=== PATIENT | female | born 1990 | race Caucasian/White ===

== ENCOUNTER 2016-10-19 23:30 | Emergency (ER) | payer BC ==
[2016-10-20] MEDS ORDERED: NS 0.9% 1000 ML* 2,000 ML IV ONE (03:41)
[2016-10-20] MEDS ORDERED: Ondansetron INJ* 2 MG/ML VIAL IV ONE (03:42)
[2016-10-20 05:02] LABS: Hematocrit 39 % (35-47); Hemoglobin 13.4 g/dl (12.0-16.0); Mean Corpuscular HGB Conc 34 g/dl (31-36); Mean Corpuscular Hemoglobin 30 pg (27-31); Mean Corpuscular Volume 87 fL (80-97); Mean Platelet Volume 8 um3 (7.4-10.4); Red Blood Count 4.51 10^6/ul (4.0-5.4); Red Cell Distribution Width 13 % (10.5-15); White Blood Count 11.2 10^3/ul (3.5-10.8)
[2016-10-20 05:06] LABS: Budding Yeast Present (Absent); Urine Bacteria Absent (Absent); Urine Bilirubin Negative (Negative); Urine Glucose Negative (Negative); Urine Nitrite Negative (Negative)
[2016-10-20 05:14] LABS: Albumin 4.5 g/dL (3.2-5.2); BUN/Creatinine Ratio 28.1 (8-20); Calcium 10.2 mg/dL (8.6-10.3); EGFR African American 91.8 (>60); EGFR Non-African American 71.4 (>60); Globulin 3.9 g/dL (2-4); Total Bilirubin 0.9 mg/dL (0.2-1.0); Total Protein 8.4 g/dL (6.4-8.9)
[2016-10-20] MEDS ORDERED: Potassium Chlor TAB* 20 MEQ TAB.ER PO ONE (05:43)
--- NOTE | 2016-10-20 06:13 | ED ---
Cari Pennington Matthew, scribed for Collins Acosta on 10/20/16 at 0447 . GI/ HPI - HPI Summary HPI Summary: A 26 y/o female presents to the ED c/o of vomiting for the last 2 days. She states that she vomited once every 10-15 minutes throughout the day today. Associated symptoms include nausea. The patient denies chest pain, SOB, abdominal pain, and diarrhea. The patient has flatulence. - History of Current Complaint Chief Complaint: EDNauseaVomitDiarrh Time Seen by Provider: 10/20/16 03:27 Stated Complaint: FLU LIKE SYMPTOMS Hx Obtained From: Patient Onset/Duration: Started Days Ago, Atraumatic, Still Present Timing: Constant Severity: Moderate Current Severity: Moderate Pain Intensity: 0 Associated Signs and Symptoms: Positive: Nausea, Vomiting. Negative: Diarrhea, Abdominal Pain, Chest Pain - Additional Pertinent History Primary Care Physician: RIGOBERTO - Allergy/Home Medications Allergies/Adverse Reactions: Allergies Allergy/AdvReac Type Severity Reaction Status Date / Time Amoxicillin Allergy Unknown Verified 06/13/16 08:17 Reaction Details Penicillins Allergy Hives Verified 06/13/16 08:17 PMH/Surg Hx/FS Hx/Imm Hx Endocrine/Hematology History: Denies: Hx Anticoagulant Therapy, Hx Anemia - Immunization History Date of Tetanus Vaccine: Unk Date of Influenza Vaccine: None Infectious Disease History: No Infectious Disease History: Denies: Traveled Outside the [place] in Last 30 Days - Family History Known Family History: Positive: Hypertension - Social History Alcohol Use: None Hx Substance Use: No Substance Use Type: Reports: None Hx Tobacco Use: Yes Smoking Status (MU): Former Smoker Type: Cigarettes Amount Used/How Often: SOCIAL Have You Smoked in the Last Year: No Review of Systems Constitutional: Negative Eyes: Negative ENT: Negative Cardiovascular: Negative Negative: Chest Pain Respiratory: Negative Negative: Shortness Of Breath Positive: Vomiting, Nausea. Negative: Abdominal Pain, Diarrhea Genitourinary: Negative Musculoskeletal: Negative Skin: Negative Neurological: Negative Psychological: Normal All Other Systems Reviewed And Are Negative: Yes Physical Exam Triage Information Reviewed: Yes Vital Signs On Initial Exam: Initial Vitals Temp Pulse Resp BP Pulse Ox 98.4 F 110 18 124/79 96 10/20/16 00:23 10/20/16 00:23 10/20/16 00:23 10/20/16 00:23 10/20/16 00:23 Vital Signs Reviewed: Yes Appearance: Positive: Well-Appearing, No Pain Distress Skin: Positive: Warm, Skin Color Reflects Adequate Perfusion, Dry Head/Face: Positive: Normal Head/Face Inspection Eyes: Positive: EOMI, KUSUM ENT: Positive: Normal ENT inspection Neck: Positive: Supple, Nontender Respiratory/Lung Sounds: Positive: Clear to Auscultation, Breath Sounds Present Cardiovascular: Positive: RRR, Pulses are Symmetrical in both Upper and Lower Extremities Abdomen Description: Positive: Nontender, Soft Bowel Sounds: Positive: Present Musculoskeletal: Positive: Normal, Strength/ROM Intact Neurological: Positive: Normal, Sensory/Motor Intact, Alert, Oriented to Person Place, Time Psychiatric: Positive: Affect/Mood Appropriate Diagnostics - Vital Signs Vital Signs Temp Pulse Resp BP Pulse Ox 10/20/16 03:11 97.6 F 83 125/83 97 10/20/16 00:23 98.4 F 110 18 124/79 96 - Laboratory Lab Results: Lab Results 10/20/16 Range/Units 00:50 Influenza A (Rapid) Negative (Negative) Influenza B (Rapid) Negative (Negative) Result Diagrams: 10/20/16 04:50 10/20/16 04:50 Lab Statement: Any lab studies that have been ordered have been reviewed, and results considered in the medical decision making process. GIGU Course/Dx - Course Assessment/Plan: A 26 y/o female presents to the ED c/o of vomiting for the last 2 days. She states that she vomited once every 10-15 minutes throughout the day today. Associated symptoms include nausea. The patient denies chest pain , SOB, abdominal pain, and diarrhea. The patient has flatulence. The patient does not have an acute abdomen and CT of abdomen is not indicated at present. Labs were reviewed. The patient was given zofran and IV fluids in the ED. She will be discharged home and follow-up with her PCP. - Diagnoses Provider Diagnoses: Dehydration, Vomiting Discharge - Discharge Plan Condition: Stable Disposition: HOME Prescriptions: Ondansetron ODT TAB* [Zofran 4 MG Odt TAB*] 4 mg PO Q8H PRN #20 tab.odt PRN Reason: Vomiting Patient Education Materials: Ondansetron (By mouth), Dehydration (ED), Acute Nausea and Vomiting (ED) Referrals: [facility] [Outside] Additional Instructions: Please follow-up with your primary care physician in 3 days. The documentation as recorded by the Cari shultz Matthew accurately reflects the service I personally performed and the decisions made by , Collins Acosta.
[2016-10-20 06:46] VITALS: BP 106/68
== END 2016-10-20 06:46 | disposition home or self-care (01) ==
LOC: ED 23:30
DX: E86.0 Dehydration (principal); R11.2 Nausea with vomiting, unspecified; Z87.891 Personal history of nicotine dependence
CPT/HCPCS: 36415; 80053; 81003; 81015; 83690; 84702; 85025; 87502; 96374; 99283; A9270-GY; J2405

== ENCOUNTER 2017-10-29 16:19 | Emergency (ER) | payer BC ==
[2017-10-29 17:28] VITALS: BP 116/74
--- NOTE | 2017-10-29 18:16 | UC ---
UC General HPI - HPI Summary HPI Summary: Pt c/o sudden onset of nausea vomiting and loose stools that began today. Pt states she may be . - History of Current Complaint Chief Complaint: UCGeneralIllness Stated Complaint: NAUSEA, VOMITING Time Seen by Provider: 10/29/17 17:56 Hx Obtained From: Patient Hx Last Menstrual Period: 08/2017 Onset/Duration: Sudden Onset, Resolved Onset Severity: Mild Current Severity: Mild Pain Intensity: 0 Associated Signs & Symptoms: Positive: Diarrhea, Nausea, Vomiting Related Hx: Recent Hospitalization - inpatient rehab for heroin addiction - Allergy/Home Medications Allergies/Adverse Reactions: Allergies Allergy/AdvReac Type Severity Reaction Status Date / Time amoxicillin Allergy Intermediate Hives Verified 10/29/17 17:30 Penicillins Allergy Intermediate Hives Verified 10/29/17 17:30 PMH/Surg Hx/FS Hx/Imm Hx Previously Healthy: Yes Other History Of: Negative For: Anticoagulant Therapy - Surgical History Surgical History: Yes Surgery Procedure, Year, and Place: 2015 - Family History Known Family History: Positive: Hypertension - Social History Occupation: Employed Full-time Lives: With Family Alcohol Use: None Substance Use Type: Heroin Substance Use Comment - Amount & Last Used: out of rehab 10/05/17 Smoking Status (MU): Former Smoker Type: Cigarettes Amount Used/How Often: SOCIAL Have You Smoked in the Last Year: No - Immunization History Most Recent Influenza Vaccination: 05/2016 Most Recent Tetanus Shot: 03/20/2016 Most Recent Pneumonia Vaccination: does not recieve Review of Systems Constitutional: Negative Skin: Negative Eyes: Negative ENT: Negative Respiratory: Negative Cardiovascular: Negative Gastrointestinal: Vomiting, Diarrhea, Nausea Genitourinary: Negative Motor: Negative Neurovascular: Negative Musculoskeletal: Negative Neurological: Negative Psychological: Negative Is Patient Immunocompromised?: No All Other Systems Reviewed And Are Negative: Yes Physical Exam Triage Information Reviewed: Yes Appearance: Well-Appearing Vital Signs: Initial Vital Signs Temp 97.8 F 10/29/17 17:21 Pulse 85 10/29/17 17:21 Resp 17 10/29/17 17:21 BP 116/74 10/29/17 17:21 Pulse Ox 99 10/29/17 17:21 Vital Signs Reviewed: Yes Eye Exam: Normal ENT Exam: Normal Dental Exam: Normal Neck exam: Normal Respiratory Exam: Normal Cardiovascular Exam: Normal Abdominal Exam: Normal Bowel Sounds: Positive: Present Musculoskeletal Exam: Normal Neurological Exam: Normal Psychological Exam: Normal Skin Exam: Normal Diagnostics - Laboratory Diagnostic Studies Completed/Ordered: urine : positive for Course/Dx - Differential Dx - Multi-Symptom Provider Diagnoses: . nausea and vomiting associated with Discharge - Sign-Out/Discharge Documenting (check all that apply): Discharge - Discharge Plan Condition: Stable Disposition: HOME Prescriptions: Metoclopramide TAB* [Reglan TAB*] 10 mg PO Q12H PRN #20 tab PRN Reason: Nausea Patient Education Materials: Nausea and Vomiting in (ED), ( ED) Forms: *Work Release Referrals: No Primary Care Phys,NOPCP [Primary Care Provider] - Additional Instructions: Please make an appointment with an OB provider as soon as possible. - Billing Disposition and Condition Condition: STABLE Disposition: HOME
== END 2017-10-29 18:33 | disposition home or self-care (01) ==
LOC: UCCORT 16:19
DX: O26.899 Other specified pregnancy related conditions, unspecified trimester (principal); Z3A.00 Weeks of gestation of pregnancy not specified; R11.2 Nausea with vomiting, unspecified; Z88.0 Allergy status to penicillin; Z87.891 Personal history of nicotine dependence
CPT/HCPCS: 84702; 99212; G0463

== ENCOUNTER 2017-12-01 09:21 | Emergency (ER) | payer BC ==
[2017-12-01 09:44] VITALS: BP 118/83
--- NOTE | 2017-12-01 10:16 | ED ---
GI/ HPI - HPI Summary HPI Summary: 27 yr old female with the complaint of nausea and diarrhea with muscle aches. The patient has a child with the same symptoms. She states she missed work today and needs a note. she has no urinary symptoms. She has some minor upper abdominal cramping at times relieved by diarrhea episode. She had an ETP two weeks ago. No issues at this point. no pelvic pain - History of Current Complaint Chief Complaint: UCGI Time Seen by Provider: 12/01/17 09:56 Stated Complaint: STOMACH COMPLAINT Hx Last Menstrual Period: 2 weeks Pain Intensity: 3 - Additional Pertinent History Primary Care Physician: [id number] - Allergy/Home Medications Allergies/Adverse Reactions: Allergies Allergy/AdvReac Type Severity Reaction Status Date / Time amoxicillin Allergy Intermediate Hives Verified 12/01/17 09:39 Penicillins Allergy Intermediate Hives Verified 12/01/17 09:39 PMH/Surg Hx/FS Hx/Imm Hx Endocrine/Hematology History: Denies: Hx Anticoagulant Therapy, Hx Anemia - Surgical History Surgery Procedure, Year, and Place: 2016 - Immunization History Date of Tetanus Vaccine: Unk Date of Influenza Vaccine: None Infectious Disease History: No Infectious Disease History: Denies: Traveled Outside the [place] in Last 30 Days - Family History Known Family History: Positive: Hypertension - Social History Lives: With Family Alcohol Use: None Hx Substance Use: No Substance Use Type: Reports: None Substance Use Comment - Amount & Last Used: out of rehab 10/05/17 Hx Tobacco Use: Yes Smoking Status (MU): Former Smoker Type: Cigarettes Amount Used/How Often: SOCIAL Have You Smoked in the Last Year: No Review of Systems Constitutional: Negative Positive: Diarrhea, Nausea All Other Systems Reviewed And Are Negative: Yes Physical Exam Triage Information Reviewed: Yes Vital Signs On Initial Exam: Initial Vitals Temp Pulse Resp BP Pulse Ox 97.8 F 87 16 118/83 97 12/01/17 09:40 12/01/17 09:40 12/01/17 09:40 12/01/17 09:40 12/01/17 09:40 Vital Signs Reviewed: Yes Appearance: Positive: Well-Appearing, No Pain Distress Skin: Positive: Warm, Skin Color Reflects Adequate Perfusion Head/Face: Positive: Normal Head/Face Inspection Eyes: Positive: EOMI ENT: Positive: Normal ENT inspection Neck: Positive: Nontender Respiratory/Lung Sounds: Positive: Clear to Auscultation, Breath Sounds Present Cardiovascular: Positive: RRR. Negative: Murmur Abdomen Description: Positive: Nontender. Negative: Distended Musculoskeletal: Positive: Strength/ROM Intact Neurological: Positive: Sensory/Motor Intact, Alert, Oriented to Person Place, Time, CN Intact II-III Psychiatric: Positive: Normal - [place] Coma Scale Best Eye Response: 4 - Spontaneous Best Motor Response: 6 - Obeys Commands Best Verbal Response: 5 - Oriented Coma Scale Total: 15 Diagnostics - Vital Signs Vital Signs Temp Pulse Resp BP Pulse Ox 12/01/17 09:40 97.8 F 87 16 118/83 97 - Laboratory Lab Statement: Any lab studies that have been ordered have been reviewed, and results considered in the medical decision making process. GIGU Course/Dx - Course Course Of Treatment: 27 yr old with gastroenteritis. Plan DC home on zofran and note for work given. - Diagnoses Provider Diagnoses: Gastroenteritis Discharge - Sign-Out/Discharge Documenting (check all that apply): Discharge/Admit/Transfer - Discharge Plan Condition: Good Disposition: HOME Prescriptions: Ondansetron TAB* [Zofran 4 MG Tab*] 4 mg PO Q6H PRN #10 tab PRN Reason: Nausea Patient Education Materials: Gastroenteritis (ED) Forms: *Work Release Referrals: [facility]FERR[facility] [Outside] No Primary Care Phys,NOPCP [Primary Care Provider] - - Billing Disposition and Condition Condition: GOOD Disposition: HOME
== END 2017-12-01 10:14 | disposition home or self-care (01) ==
LOC: UCCORT 09:21
DX: K52.9 Noninfective gastroenteritis and colitis, unspecified (principal); Z87.891 Personal history of nicotine dependence; Z88.3 Allergy status to other anti-infective agents; Z88.0 Allergy status to penicillin
CPT/HCPCS: 99212; G0463

== ENCOUNTER 2018-09-02 07:36 | Emergency (ER) | payer BC, OTHER ==
--- OUTSIDE RECORDS SUMMARY | 2018-09-02 07:41 | XMS REPORT | Continuity of Care Document ---
:1990 External Reference #:[id number] Author Name Debbie Figueroa Care Team Providers Name Role Phone Shaan Huston MD Care Team Information Meteorology Instructor Unavailable Payers Type Date Identification Numbers Payment Provider Subscriber Onset: 2018 Policy Number: [id number] [employer]ha Liu PayID: [id number] [address] [place] [address] Advance Directives Description No Information Available Problems Description No Information Family History Date Family Member(s) Problem(s) Comments Father Alive Father Wears Glasses Mother Alive Mother Wears Glasses First Sister Alive First Sister Wears CLS First Sister Wears Glasses Paternal Grandfather due to [place] () Paternal Grandmother Alive Maternal Grandfather due to Unknown Causes () Maternal Grandmother Alive Social History Type Date Description Comments Sex Unknown Marital Status 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 Quit 3 years ago Recreational Drug Use Denies Drug Use Smoking Status Reviewed: 06/19/18 Patient is a former smoked 3 cigarettes a smoker day x 1 to 2 years. Quit 3 years ago Exercise Type/Frequency Exercises regularly Allergies, Adverse Reactions, Alerts Date Description Reaction Status Severity Comments 06/18/2018 Amoxicillin Active 06/18/2018 Penicillin Active Medications Medication Date Status Form Strength Qnty SIG Indications Ordering Provider Fluorometholone 06/19/ Active Suspension 0.1% 5ml please Robel, 2017 apply 1 MD Shaan drop to both eyes 2 times daily for 5 days Maxitrol / Active Suspension 3.5-57821- 1 drop Robel, 0000 0.1 left eye MD Shaan tid x 5 days Artificial Tears / Active Solution 1.4% instill Unknown 0000 1 drop in left eye as needed No Active Unknown Medications 2018 - 2017 Immunizations Description No Information Available Vital Signs Description No Information Available Results Description No Information Available Procedures Date Code Description Status 06/19/2018 59835 Remove Foreign Body Conjunctiva Embedded Completed 06/18/2018 66429 Eye Exam New Patient Comprehensive Completed Encounters Description No Information Available Plan of Treatment 06/19/2018 - Shaan Huston, [id number] Injury of conjunctiva and corneal abrasion without foreign body, left eye, initial encounterComments:- removed a fiber-like material left upper eyelid- there continues to be acute conjunctivitis s/p foreign body exposure- please stop neomycin/polymyxin/ dexamethasone please continue - artificial tears 1 drop left eye 4 times daily for 4 days- cool compresses for swelling- erythromycin ointment thin ribbon 2 times daily in the left eye for 3 days- fluorometholone 1 drop left eye 2 times daily for 5 days- safety glasses when working with environmental hazardsplease call with ? or concernsFollow up:please call with ? or concerns
--- OUTSIDE RECORDS SUMMARY | 2018-09-02 07:41 | XMS REPORT | Continuity of Care Document ---
:1990 External Reference #:[id number] Author Name Debbie Figueroa Care Team Providers Name Role Phone Shaan Huston MD Care Team Information Sr. 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 consumes alcohol socially Tobacco [...] for 5 days Maxitrol / Active Suspension 3.5-79719- 1 drop Robel, 0000 0.1 left eye MD Shaan tid x 5 days Artificial Tears / Active Solution 1.4% instill Unknown 0000 1 drop in left eye as needed No Active Unknown Medications 2018 - 2017 Immunizations Description No Information Available Vital Signs Description No Information Available Results Description No Information Available Procedures Date Code Description Status 06/19/2018 76900 Remove Foreign Body Conjunctiva Embedded Completed 06/18/2018 97767 Eye Exam New Patient Comprehensive Completed Encounters [...]
[2018-09-02 07:45] VITALS: BP 138/83
--- NOTE | 2018-09-02 08:02 | UC ---
Abdominal Pain Female HPI - HPI Summary HPI Summary: Patient presents to urgent care with acute nausea and vomiting. Patient states he was well when she went to bed. Patient states she woke up around 3 AM with vomiting. Patient states she's vomited 55 times since then. No bilious no blood. Patient states she also has had some diarrhea. No blood. Patient states she gets a little bit of abdominal cramping and mealy following bowel movement but it does not last. Patient denies fevers or chills. 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 Patient denies headache, congestion. Patient denies eating any questionable food. Nobody else at home sick. Patient states she is not . Patient's menses started this week. Patient did say she noticed that her urine seems a little bit dark and cloudy. No odor. No dysuria or frequency. Patient's medications reviewed this visit. - History of Current Complaint Chief Complaint: UCGeneralIllness Stated Complaint: STOMACH ACHE Time Seen by Provider: 09/02/18 08:00 Hx Obtained From: Patient Hx Last Menstrual Period: 09/02/18 ?: No Onset/Duration: Sudden Onset Severity Initially: Mild Severity Currently: Mild Pain Intensity: 4 Allergies/Adverse Reactions: Allergies Allergy/AdvReac Type Severity Reaction Status Date / Time amoxicillin Allergy Intermediate Hives Verified 09/02/18 07:45 Penicillins Allergy Intermediate Hives Verified 09/02/18 07:45 Home Medications: Home Medications Ibuprofen 600 mg PO ONCE PRN 09/02/18 [History Confirmed 09/02/18] PMH/Surg Hx/FS Hx/Imm Hx Previously Healthy: Yes Other History Of: Negative For: Anticoagulant Therapy - Surgical History Surgical History: Yes Surgery Procedure, Year, and Place: 2016 - Family History Known Family History: Positive: Hypertension - Social History Alcohol Use: Occasionally Substance Use Type: None Substance Use Comment - Amount & Last Used: out of rehab 10/05/17 Smoking Status (MU): Former Smoker Type: Cigarettes Amount Used/How Often: SOCIAL Have You Smoked in the Last Year: No - Immunization History Most Recent Influenza Vaccination: 05/2016 Most Recent Tetanus Shot: 03/20/2016 Most Recent Pneumonia Vaccination: does not recieve Review of Systems All Other Systems Reviewed And Are Negative: Yes Constitutional: Positive: Fatigue Respiratory: Positive: Negative Gastrointestinal: Positive: Vomiting, Diarrhea, Nausea Genitourinary: Positive: Other - cloudy, dark Motor: Positive: Negative Is Patient Immunocompromised?: No Physical Exam - Summary Physical Exam Summary: Vital Signs Reviewed: Yes A+Ox3, no distress Eyes: Conjunctiva Clear, KUSUM. EOM intact and full ENT: Hearing grossly normal TM x 2 clear, mmoist, uvula midline, no exudate, no erythema Neck: Positive: Supple Respiratory: Positive: No respiratory distress, No accessory muscle use + CTA throughout no w/r Cardiovascular: RRR nl s1, s2 no m/r CBT <2 sec abd soft + BS nd, no guarding, no rebound mild diffuse pain Musculoskeletal Exam: HERNANDEZ x 4 without difficulty Strength Intact, ROM Intact Neurological: Positive: Alert, + sensation throughout Psychological: Positive: Normal Response To Family Skin: Positive: no rash, no ecchymosis Triage Information Reviewed: Yes Vital Signs: Initial Vital Signs Temp 97.5 F 09/02/18 07:41 Pulse 98 09/02/18 07:41 Resp 18 09/02/18 07:41 BP 138/83 09/02/18 07:41 Pulse Ox 100 09/02/18 07:41 Re-Evaluation - Re-Evaluation First Eval Change: Improved - Pt improved following zofran - tolerating ice chips reviewed urine Will Rx macrobd, zofran clears to bland return precautions Abd Pain Female Course/Dx - Course Course Of Treatment: Patient presents to urgent care with acute onset nausea vomiting and diarrhea at 3 AM. Patient states multiple coworkers with similar symptoms. Patient denies any fevers. Patient with mild episodes of abdominal pain and increased right after bowel movements and then resolve. No head congestion symptoms. No chest pain or shortness of breath or cough. Patient states she currently has her menses. Patient does comment that her urine is cloudy and dark - Differential Dx/Diagnosis Provider Diagnosis: Vomiting and diarrhea, UTI (urinary tract infection) Discharge - Sign-Out/Discharge Documenting (check all that apply): Patient Departure All imaging exams completed and their final reports reviewed: No Studies - Discharge Plan Condition: Stable Disposition: HOME Prescriptions: Nitrofurantoin Monohyd/M-Cryst [Macrobid 100 mg Capsule] 100 mg PO BID #14 cap Ondansetron ODT TAB* [Zofran 4 MG Odt TAB*] 4 mg PO Q4H PRN #10 tab.odt PRN Reason: Nausea Patient Education Materials: Urinary Tract Infection in Women (ED), Acute Nausea and Vomiting (ED) Forms: *Gen. Provider Communication, *Work Release Referrals: No Primary Care Phys,NOPCP [Primary Care Provider] - Additional Instructions: - stay well hydrated - drink plenty of non-alcoholic, non caffinated beverages. For the first 6 hours, eat and drink clears (water, [place], soup broth, jello, popsicles, Gatorade). If you tolerate this okay, add bland foods such as dry toast, scrambled eggs, crackers. Wait until you are feeling better for 24 hours before eating spicy food, acidic food, tomato based food, fried food. -These infections are spread by oral secretions. Do not share eating or drinking utensils. Frequent hand washing is important. Clean items that may get your secretions on them such as cell phones, ipads, computer mouse, television remotes. Once you have been on antbiotics for 2 days, change your pillowcase and your toothbrush - Your urine will be further tested - if you require any changes to your treatment, we will contact you - this usually take 2 days - Contact your primary doctor to arrange a follow-up appointment next week. Contact your doctor or return with questions or concerns - Take your antibiotics exactly as prescribed until gone -Okay to take medication as prescribed for nausea - If you develop increased pain, uncontrolled fevers, inability to stay hydrated or any other concerns it is recommended you go to the emergency department for further evaluation and treatment - Call your doctor or return with questions or concerns - Billing Disposition and Condition Condition: STABLE Disposition: Home
[2018-09-02] MEDS ORDERED: Ondansetron ODT TAB* 4 MG PO ONE (08:22)
== END 2018-09-02 08:56 | disposition home or self-care (01) ==
LOC: UCCORT 07:36
DX: R11.2 Nausea with vomiting, unspecified (principal); R19.7 Diarrhea, unspecified; N39.0 Urinary tract infection, site not specified; Z88.0 Allergy status to penicillin; Z87.891 Personal history of nicotine dependence
CPT/HCPCS: 81003; 87086; 99212; A9270-GY; G0463

== ENCOUNTER 2019-03-27 13:36 | Emergency (ER) | payer OTHER ==
[2019-03-27 13:48] VITALS: BP 116/82
--- NOTE | 2019-03-27 14:03 | UC ---
Nausea/Vomiting/Diarrhea HPI - HPI Summary HPI Summary: Pt had grilled chicken at her brother's house yesterday and a few pieces had to be returned to the grill because they were still pink. She had already eaten a few pieces. During the night she started having vomiting (about 4 times since it started until now), and diarrhea X 3. She denies any fever or chills. Last time she threw up and had diarrhea was just about 45 minutes prior to arrival. No other family members are ill. - History of Current Complaint Chief Complaint: UCGI Stated Complaint: NAUSEA, VOMITING, DIARRHEA Time Seen by Provider: 03/27/19 13:57 Hx Obtained From: Patient Hx Last Menstrual Period: 09/02/18 ?: No Onset/Duration: Sudden Onset Timing: Intermittent Episodes Lasting: - Lasts just a few minutes Severity Initially: Mild Severity Currently: Mild Pain Intensity: 0 Location: Other - No pain Aggravating Factor(s): Food, Other: - Vomits with liquids as well Alleviating Factor(s): Vomiting Vomiting Frequency: Every 3-4 hours Nausea/Vomiting Duration: 0-12 hours Vomiting Characteristics: Retching Diarrhea Presence: Yes Diarrhea Frequency: Every 3-4 hours Diarrhea Duration: 0-12 hours Diarrhea Characteristics: Other - Loose - Allergies/Home Medications Allergies/Adverse Reactions: Allergies Allergy/AdvReac Type Severity Reaction Status Date / Time amoxicillin Allergy Intermediate Hives Verified 09/02/18 07:45 Penicillins Allergy Intermediate Hives Verified 09/02/18 07:45 PMH/Surg Hx/FS Hx/Imm Hx Previously Healthy: Yes Other History Of: Negative For: Anticoagulant Therapy - Surgical History Surgical History: Yes Surgery Procedure, Year, and Place: 2015 - Family History Known Family History: Positive: Hypertension - Social History Alcohol Use: Occasionally Substance Use Type: None Substance Use Comment - Amount & Last Used: out of rehab 10/05/17 Smoking Status (MU): Former Smoker Type: Cigarettes Amount Used/How Often: SOCIAL Have You Smoked in the Last Year: No - Immunization History Most Recent Influenza Vaccination: 05/2016 Most Recent Tetanus Shot: 03/20/2016 Most Recent Pneumonia Vaccination: does not recieve Review of Systems All Other Systems Reviewed And Are Negative: Yes Gastrointestinal: Positive: Vomiting, Diarrhea, Nausea Is Patient Immunocompromised?: No Physical Exam Triage Information Reviewed: Yes Appearance: Well-Appearing, No Pain Distress, Well-Nourished Vital Signs: Initial Vital Signs Temp 98.3 F 03/27/19 13:43 Pulse 92 03/27/19 13:43 Resp 16 03/27/19 13:43 BP 116/82 03/27/19 13:43 Pulse Ox 90 03/27/19 13:43 Vital Signs Reviewed: Yes Eyes: Positive: Conjunctiva Clear ENT: Positive: Hearing grossly normal, Pharynx normal, TMs normal, Uvula midline , Other - Mucus membranes moist Neck: Positive: Supple, Nontender, No Lymphadenopathy Respiratory: Positive: Lungs clear, Normal breath sounds, No respiratory distress, No accessory muscle use Cardiovascular: Positive: RRR, Pulses Normal, Brisk Capillary Refill Abdomen Description: Positive: Nontender, No Organomegaly, Soft, Bruit. Negative: CVA Tenderness (R), CVA Tenderness (L), Distended, Guarding, Hepatomegaly, McBurney's Point Tenderness, Peritoneal Signs, Splenomegaly Bowel Sounds: Positive: Present Musculoskeletal: Positive: Strength Intact, ROM Intact, No Edema Neurological: Positive: Alert, Muscle Tone Normal Psychological Exam: Normal Skin Exam: Normal Naus/Vom/Diarrhea Course/Dx - Course Course Of Treatment: Pt is comfortable here and has not had any diarrhea or vomiting while here. I believe this is more of a viral illness as oppose to related to the chicken she ate. The most important thing now is to get re-hydrated. - Differential Dx/Diagnosis Provider Diagnosis: Viral illness Is Visit Related: No Condition At Discharge: Good Discharge - Sign-Out/Discharge Documenting (check all that apply): Patient Departure All imaging exams completed and their final reports reviewed: No Studies - Discharge Plan Condition: Good Disposition: HOME Prescriptions: Ondansetron ODT TAB* [Zofran 4 MG Odt TAB*] 4 mg PO Q8H PRN #12 tab.odt PRN Reason: Nausea Patient Education Materials: Acute Nausea and Vomiting (ED), Acute Diarrhea (ED ) Forms: *Work Release Referrals: No Primary Care Phys,NOPCP [Primary Care Provider] - [facility] [Outside] - Billing Disposition and Condition Condition: GOOD Disposition: Home - Attestation Statements Provider Attestation: I was available for consult. This patient was seen by the SPENCER. The patient was not presented to, seen by, or examined by me. -Nadeen
== END 2019-03-27 14:12 | disposition home or self-care (01) ==
LOC: UCCORT 13:36
DX: B34.9 Viral infection, unspecified (principal); Z87.891 Personal history of nicotine dependence
CPT/HCPCS: 99212; G0463

== ENCOUNTER → 2019-08-02 07:46 | Day surgery (SDC) | payer OTHER ==
--- NOTE | 2019-07-26 18:34 | HP ---
ADMITTING HISTORY AND PHYSICAL: DATE OF ADMISSION: 08/02/19 ADMITTING DIAGNOSIS: Left proximal ureteral calculus. PLANNED PROCEDURE: Shockwave lithotripsy of left ureteral calculus, possible left ureteroscopy, laser lithotripsy, and stent replacement (depending on preoperative x- ray findings). SURGEON: Dr. Jordan. HISTORY OF PRESENT ILLNESS: Surekha Liu is a 29-year-old lady who was traveling over [facility] and ended up having an urgent placement of a left ureteral stent for a 7 mm obstructing left ureteropelvic junction calculus. This was done in [place]. At that time, she was also noted to have a 3 mm calculus in the lower pole of the left kidney and some enlarged retroperitoneal lymph nodes (for which she is supposedly following up with her primary care doctor). She did well after the left stent insertion and is now being brought in for treatment of the calculus either with shockwave lithotripsy or laser lithotripsy depending on the findings of her preoperative x-ray. PAST MEDICAL HISTORY: Unremarkable. PAST SURGICAL HISTORY: Significant for recent left stent insertion on 07/06/19 and a . MEDICATIONS ON ADMISSION: None. ALLERGIES: AMOXICILLIN (hives). FAMILY HISTORY: Her father's family has a history of kidney stones. SOCIAL HISTORY: Smoking history: She is a nonsmoker. REVIEW OF SYSTEMS: She is, otherwise, in excellent health. She denies any chest pain or shortness of breath. There is no history of diabetes mellitus or any other major systemic illness. PHYSICAL EXAMINATION GENERAL: Reveals a pleasant, healthy-appearing young lady. VITAL SIGNS: Blood pressure is 118/74, pulse 93 per minute, temperature 97.4, oxygen saturation 98% on room air. LUNGS: Clear bilaterally. CARDIOVASCULAR: Regular rate and rhythm. S1, S2. ABDOMEN: Soft with mild left flank tenderness. IMPRESSION: A 29-year-old lady with a left stent that was placed on 07/06/19 for an obstructing 7 mm left ureteropelvic junction calculus. PLAN: Planned procedure is shockwave lithotripsy of left ureteral calculus, possible left ureteroscopy, laser, and stent replacement. [id number]/[facility] #: [id number] MTDD
[~2019-08-02 07:46] MED LIST: Buffered Lidocaine 1% SYRIN* 1 ML/SYRINGE INTRADERM ONE; Dexamethasone IV* 4 MG/ML 1 ML (4 MG) IV SLOW PU ONE; Dexamethasone IV* 4 MG/ML 1 ML (4 MG) ONE; EPHEDrine (Pressors)* 50 MG/ML VIAL ONE; Famotidine IV* 10 MG/ML 2 ML (20 mg) IV ONE; Famotidine IV* 10 MG/ML 2 ML (20 mg) ONE; Furosemide IV* 10 MG/ML 2 ML VIAL (20 MG) ONE; HYDROcodone/ACETAMIN 5-325 MG* 1 TAB PO PRN; Iohexol 180 (CONTRAST) 10 ML SDV IV ONE; Lactated Ringers 1000 ML Bag* 1,000 ML IV SCH; Levofloxacin 500 MG IVPREMIX(* 500 MG/100 ML BAG IVPB ONE; Lidocaine 2% PF * 5 ML VIAL ONE; Midazolam* 1 MG/ML 5 ML VIAL (5 MG) ONE; Naloxone* 0.4 MG/ML 1 ML VIAL IV PRN; Ondansetron INJ* 2 MG/ML VIAL ONE; PROCHLORPERAZINE INJ 5 MG/ML 2 ML VIAL IV PRN; Propofol* 10 MG/ML 20 ML BTL ONE; fentaNYL* 50 MCG/ML 2 ML VIAL (100 MCG VIAL) ONE; oxyCODONE/Acetamin 5/325 MG* TAB ONE; oxyCODONE/Acetamin 5/325 MG* TAB PO PRN
[2019-08-02] MEDS: fentaNYL* 50 MCG/ML 2 ML VIAL (100 MCG VIAL) IV PRN ×2 (13:35→13:54)
[2019-08-02 14:43] VITALS: BP 117/78
--- NOTE | 2019-08-02 21:13 | OP ---
OPERATIVE REPORT: DATE OF OPERATION: 08/02/19 - [facility] DATE OF : 89 SURGEON: Jun Jordan MD ANESTHESIOLOGIST: Dr. Mcdonald ANESTHESIA: General. PRE-OP DIAGNOSIS: Left hydronephrosis. POST-OP DIAGNOSIS: Left hydronephrosis. OPERATIVE PROCEDURE: Cystoscopy, left stent removal, left retrograde pyelogram , left ureteroscopy, left pyeloscopy, and left left stent insertion. COMPLICATIONS: None. STENT USED: A 8-[place] stent, left ureter. POSTOPERATIVE CONDITION: Stable. INDICATION: Surekha Liu is a 29-year-old lady who had urgent left stent insertion done in [place] for a 7 mm left ureteropelvic junction calculus. DESCRIPTION OF PROCEDURE: After induction of general anesthesia, the patient was placed in dorsal lithotomy position. Sequential compression devices were in place and functioning. Initial cystoscopy revealed a normal appearing bladder. The patient appeared to have a fairly small about 5-[place] left stent which was removed. Retrograde pyelogram revealed left hydronephrosis. A 6- [place] semirigid ureteroscope was carefully advanced under direct vision. The entire distal, mid, and proximal ureter were visualized. The ureter was fairly narrow, but there was no calculus seen in the lumen all the way up into the renal pelvis. The kidney was entered and pyeloscopy was performed and I could not visualize any calculus in the renal pelvis either. The ureteroscope was carefully removed under direct vision and access sheath was introduced. The ureter being narrow, I necessitated dilatation of the ureter initially with a 10 -12 [place] access sheath and then eventually I was able to place 12-14 access sheath. A flexible ureteroscope was introduced. There was some cloudy urine in the kidney which made visibility suboptimal and I could not visualize the calculus even with the flexible ureteroscope. It is possible that the calculus may have lodged in a posterior lower pole calyx and my plan is to go ahead and place an 8-[place] stent to allow the ureter to dilate and then to consider alkalinizing the urine as the calculus could not be seen on fluoroscopy or on the preoperative x-ray. An 8-[place] optima stent was placed under fluoroscopic monitoring with good proximal and distal positioning obtained. The bladder was emptied. I will obtain an ultrasound in the next few days to make sure if I can delineate the position of the calculus and then go ahead and start her on potassium citrate to dissolve what may possibly represent a uric acid calculus. The patient tolerated the procedure satisfactorily and was transferred back to the recovery area in stable condition. [id number]/[facility] #: [id number] MTDD
== END | disposition home or self-care (01) ==
LOC: OR 07:46
PROVIDERS: ATTEND Urology
DX: N13.2 Hydronephrosis with renal and ureteral calculous obstruction (principal)
CPT/HCPCS: 74018; 81025; A9270-GY; C2625; J1100; J1940; J1956; J2250; J2405; J2704; J3010